=== PATIENT | female | born 1995 | race African-American/Black ===

== ENCOUNTER 2017-03-18 12:58 | Emergency (ER) | payer SELFPAY ==
[2017-03-18] MEDS ORDERED: Cephalexin 250 MG/5 ML Oral Suspension ONE (13:53)
[2017-03-18] MEDS ORDERED: Tobramycin Sulfate 0.3% Ophth Susp 5 ml Bottle ONE (13:53)
== END 2017-03-18 14:00 | disposition home or self-care (01) ==
LOC: MADERS 12:58
DX: H00.11 Chalazion right upper eyelid (principal)
CPT/HCPCS: 99283

== ENCOUNTER 2017-09-09 13:55 | Emergency (ER) | payer OTHER, SELFPAY | END 2017-09-09 14:46 | disposition home or self-care (01) | LOC: MADERS 13:55 | DX: Z48.817 Encounter for surgical aftercare following surgery on the skin and subcutaneous tissue (principal) | CPT/HCPCS: 99282 ==

== ENCOUNTER 2018-02-27 06:20 | Emergency (ER) | payer OTHER ==
[2018-02-27] MEDS ORDERED: Famotidine 20 MG TAB ONE (07:02)
[2018-02-27 07:27] LABS: Bilirubin Negative (Negative); Blood, Urine Negative (Negative); Clarity Slightly Cloudy (Clear); Glucose, Urine (Dipstick) Negative (Negative); Leukocyte Negative (Negative); Nitrite Negative (Negative); Protein, Urine (Dipstick) Negative (Neg-Trace)
[2018-02-27 07:29] LABS: Pregnancy Test - Urine (BHCG) Negative (Negative); Pregu Control Background? CLEAR/WHITE (CLR/WHITE); Pregu Control Bar Appear? YES (CONTROL BAR)
== END 2018-02-27 07:44 | disposition home or self-care (01) ==
LOC: MADERS 06:20
DX: K21.9 Gastro-esophageal reflux disease without esophagitis (principal)
CPT/HCPCS: 81003; 81025; 99284

== ENCOUNTER 2018-08-15 08:30 | Emergency (ER) | payer SELFPAY | END 2018-08-15 11:14 | disposition home or self-care (01) | LOC: MADERS 08:30 | DX: N89.8 Other specified noninflammatory disorders of vagina (principal); J45.909 Unspecified asthma, uncomplicated | CPT/HCPCS: 99281 ==

== ENCOUNTER 2019-09-20 04:01 | Emergency (ER) | payer MEDICAID, SELFPAY | END 2019-09-20 05:00 | disposition home or self-care (01) | LOC: MADERS 04:01 | DX: H69.92 Unspecified Eustachian tube disorder, left ear (principal) | CPT/HCPCS: 99281 ==

== ENCOUNTER 2019-09-25 10:56 | Emergency (ER) | payer SELFPAY ==
[2019-09-25] MEDS ORDERED: predniSONE 20 MG TAB ONE (12:15)
== END 2019-09-25 12:22 | disposition home or self-care (01) ==
LOC: MADERS 10:56
DX: J02.8 Acute pharyngitis due to other specified organisms (principal); J45.909 Unspecified asthma, uncomplicated
CPT/HCPCS: 87081; 87430; 99283; J7512

== ENCOUNTER 2020-07-11 11:04 | Outpatient (CLI) | payer OTHER ==
[2020-07-11 12:50] LABS: #Basophils 0.1 thou/uL (0.0-0.2); #Eosinphils 0.1 thou/uL (0.0-0.7); #Monocytes 0.5 thou/uL (0.11-0.59); #Neutrophils 6.8 thou/uL (1.40-6.50); %Basophils 1.3 % (0.0-1.0); %Eosinophils 1.1 % (0.0-10.0); %Lymphocytes 21.1 % (21.0-51.0); %Monocytes 5.6 % (0.0-10.0); Hemoglobin 9.6 g/dL (12.0-16.0); Hypochromia SLIGHT = 6-15 cells (100X) (0-5/hpf); MDiff Complete? YES; Mean Corpuscular HGB CONC 29.6 g/dL (32.0-36.0); Mean Corpuscular Hemoglobin 19.7 pg (27.0-31.0); Mean Corpuscular Volume 66.8 fL (78.0-98.0); Mean Platelet Volume 9.9 fL (7.4-10.4); Microcytosis SLIGHT = 6-15 cells (100X) (0-5/hpf); Platelet Count 326 thou/uL (130-400); Polychromasia SLIGHT = 2-3 cells (100X) (0-2/hpf); RBC Distribution Width 13.4 % (11.5-14.5); Red Blood Cell (RBC) Count 4.88 mill/uL (4.20-5.40); White Blood Cell (WBC) Count 9.6 thou/uL (4.8-10.8)
[2020-07-11 16:10] LABS: Syphilis Antibody Nonreactive (Nonreactive); Syphilis Antibody Index 0.08 S/CO (<1.00 Non-Reactive)
[2020-07-11 16:14] LABS: HIV (1/2) Antibody/Antigen Non-Reactive (NonReactive); HIV 1/2 INDEX 0.12 S/CO (<1.00)
== END 2020-07-11 11:05 | disposition home or self-care (01) ==
LOC: MADLABBHPM 11:04
PROVIDERS: ATTEND Family Medicine
DX: O09.892 Supervision of other high risk pregnancies, second trimester (principal)
CPT/HCPCS: 36415; 82950; 85025; 86780; 87389